=== PATIENT | female | born 1975 | race Caucasian/White ===

== ENCOUNTER 2025-01-31 12:01 | Emergency (ER) | payer OTHER ==
[~2025-01-31] VITALS: Ht 172.7 cm; Wt 113.4 kg
[~2025-01-31 12:01] MED LIST: BIAXIN500 MG PO; CLARITIN10 MG PO
[2025-01-31] MEDS ORDERED: Acetaminophen/Oxycodone 5 MG/325 MG TABLET PO ONE (12:20)
== END 2025-01-31 13:55 | disposition home or self-care (01) ==
LOC: ED 12:01
DX: S80.02XA Contusion of left knee, initial encounter (principal); Z79.899 Other long term (current) drug therapy; Z90.49 Acquired absence of other specified parts of digestive tract; W18.2XXA Fall in (into) shower or empty bathtub, initial encounter; Y93.89 Activity, other specified; Y92.89 Other specified places as the place of occurrence of the external cause; Y99.8 Other external cause status